=== PATIENT | female | born 1975 | race Asian ===

== ENCOUNTER 2019-06-29 09:40 | Emergency (ER) | payer MEDICAID, OTHER ==
[~2019-06-29] VITALS: Ht 165.1 cm; Wt 59.0 kg
[2019-06-29 10:38] VITALS: BP 121/62
[2019-06-29] MEDS: IBUPROFEN 800 MG TAB PO ONE (11:21)
== END 2019-06-29 12:17 | disposition home or self-care (01) ==
LOC: ER 09:40
DX: S52.501A Unspecified fracture of the lower end of right radius, initial encounter for closed fracture (principal); W00.0XXA Fall on same level due to ice and snow, initial encounter; Y93.01 Activity, walking, marching and hiking; Y92.89 Other specified places as the place of occurrence of the external cause; Y99.8 Other external cause status
CPT/HCPCS: 29125; 73110